=== PATIENT | male | born 1975 | race Caucasian/White ===

== ENCOUNTER 2022-01-09 04:17 | Emergency (ER) | payer BC ==
[~2022-01-09 04:17] MED LIST: IBUPROFEN600 MG PO
[2022-01-09] MEDS ORDERED: MEDROL4 MG PO (08:22)
== END 2022-01-09 09:13 | disposition home or self-care (01) ==
LOC: ER1 04:17
DX: M54.50 Low back pain, unspecified (principal); Z88.5 Allergy status to narcotic agent
CPT/HCPCS: 72131; 99283